=== PATIENT | male | born 1945 | race Caucasian/White ===

== ENCOUNTER 2017-09-16 20:50 | Inpatient (IN) | payer OTHER ==
[~2017-09-16] VITALS: Ht 170.2 cm; Wt 90.0 kg
[~2017-09-16 20:50] MED LIST: ADULT LOW DOSE81 M1 PO; IRON325 M1 PO; METOPROLOL SUCC25 MG PO; PLAVIX75 MG PO; PROTONIX40 M1 PO; SIMVASTATIN40 MG PO
[2017-09-17 08:08] VITALS: BP 122/55
[2017-09-17 16:14] VITALS: BP 128/60
[2017-09-17 18:03] LABS: HEMATOCRIT 38.6 % (38.0-50.0); HEMOGLOBIN 12.9 G/DL (12.5-16.6); MCV 90.6 FL (86-99)
[2017-09-18 00:18] VITALS: BP 130/58
[2017-09-18 05:03] VITALS: BP 114/65
[2017-09-18 06:52] LABS: CHLORIDE 98 MEQ/L (99-109); GFR ESTIMATE (CALCULATED) > 59 mL/min/ (58.99-99999); GLUCOSE 122 mg/dL (70-99); POTASSIUM 4.7 MEQ/L (3.7-5.4); SODIUM 134 MEQ/L (136-147); UREA NITROGEN (BUN) 20 mg/dL (9-23)
[2017-09-18 08:00] VITALS: BP 86/49
[2017-09-18 08:20] VITALS: BP 99/56
[2017-09-18 16:05] VITALS: BP 109/59
[2017-09-19 00:13] VITALS: BP 129/61
[2017-09-19 08:12] VITALS: BP 118/56
[2017-09-19] MEDS ORDERED: SENNA PLUS TAB1 EACH PO (10:24)
[2017-09-19] MEDS ORDERED: ELIQUIS2.5 MG PO (10:25)
[2017-09-19] MEDS ORDERED: OXYCODONE HCL5 MG PO (10:25)
[2017-09-19] MEDS ORDERED: Salonpas 4% Patch TD (10:25)
[2017-09-19 11:50] VITALS: BP 132/59
== END 2017-09-19 15:30 | DRG 470 ==
LOC: ENRESERV 20:50 → 2SOUTH 09-17 07:03 → ENRESERV 09-17 09:24 → 2SOUTH 09-17 10:19 → 3EAST 09-17 15:12 → 2SOUTH 09-17 16:13 → 3EAST 09-19 15:30
PROVIDERS: Orthopaedic Surgery
PROC: 0SRC0J9 Replacement of Right Knee Joint with Synthetic Substitute, Cemented, Open Approach (ICD-10-PCS; principal; 2017-09-17)
DX: M17.11 Unilateral primary osteoarthritis, right knee (principal); G89.29 Other chronic pain; M21.061 Valgus deformity, not elsewhere classified, right knee; I10 Essential (primary) hypertension; N40.0 Benign prostatic hyperplasia without lower urinary tract symptoms; E78.2 Mixed hyperlipidemia; K21.9 Gastro-esophageal reflux disease without esophagitis; I25.2 Old myocardial infarction; Z95.5 Presence of coronary angioplasty implant and graft; Z79.02 Long term (current) use of antithrombotics/antiplatelets; Z79.82 Long term (current) use of aspirin; Z87.891 Personal history of nicotine dependence; Z82.49 Family history of ischemic heart disease and other diseases of the circulatory system
CPT/HCPCS: 80048; 82948; 85014; 85018; C1713; J0131; J0690; J1885; J2250; J2795; J7050; J7120; J7643; L1820; Q0175; S0020